=== PATIENT | female | born 1930 | race Caucasian/White ===

== ENCOUNTER 2017-12-02 11:20 | Emergency (ER) | payer OTHER ==
--- NOTE | 2017-12-02 11:41 | PDOC ---
Attending Attestation - Resident Resident Name: JoaquinTio solano - HPI HPI: 12/02/17 15:31 pt presents to the ED after falling in her appartment. Patient was alone at the time and the fall was unwitnessed. Patient reports to me that she had a mechanical trip and fall and she was able to recall the entire incident. PAtient denies syncope. - Physicial Exam PE: 12/02/17 15:33 Agree with resident exam. Patient is alert and oriented x 3. + laceration to the scalp without active bleeding. Neurologically intact. - Medical Decision Making 12/02/17 15:36 Pt presents to the ED with laceration to the scalp after apparent mechanical trip and fall. I have spoken at length to the patient and her daughter, and they are both adamant that the patient had a mechanical trip and fall, and deny syncope. Ct head is negative. Will discharge home with follow up with PMD tomorrow AM.
[2017-12-02] MEDS ORDERED: ACETAMINOPHEN 325 MG TABLET (FP) PO ONE (12:09)
--- NOTE | 2017-12-02 12:11 | PDOC ---
History of Present Illness - General Stated Complaint: FALL Time Seen by Provider: 12/02/17 11:40 History Source: Patient Exam Limitations: Clinical Condition - History of Present Illness Initial Comments: 12/02/17 12:05 Patient is an 87F with history of CAD s/p stenting, peripheral vascular disease , HLD, s/p aortic valve replacement, and anemia here today complaining of a fall. She states that she doesn't know what happened. She states that she found herself on the floor bleeding from her head. She denies chest pain, shortness of breath, dizziness. She denies headache, endorses neck "tightness". Patient is not a reliable historian, repeatedly asking the same questions. Patient has chronic wounds managed by maria luisa Rubi 2 days ago. Past History - Past Medical History Allergies/Adverse Reactions: Allergies Allergy/AdvReac Type Severity Reaction Status Date / Time clopidogrel bisulfate Allergy Verified 11/02/17 13:43 [From Plavix] Home Medications: Ambulatory Orders ASA - 81 mg PO DAILY 08/03/17 Acetaminophen 650 mg PO QID PRN 08/03/17 Atorvastatin Ca 40 mg PO DAILY 08/03/17 Biotin 1,000 mcg PO DAILY 08/03/17 Coenzyme Q-10 100 mg PO DAILY 08/03/17 Ferrous Sulfate 325 mg PO DAILY 08/03/17 Fish Oil 1,000 mg Softgel 1 cap PO DAILY 08/03/17 Vitamin D3 2,000 iu PO DAILY 08/03/17 Anemia: Yes Cardiac Disorders: Yes (AVR) Hypercholesterolemia: Yes - Surgical History Orthopedic Surgery: Yes (Left & Right THR) - Suicide/Smoking/Psychosocial Hx Smoking History: Former smoker Have you smoked in the past 12 months: No Review of Systems - Review of Systems Comments:: 12/02/17 12:11 GENERAL/CONSTITUTIONAL: No fever or chills. No weakness. HEAD, EYES, EARS, NOSE AND THROAT: No change in vision. No sore throat. CARDIOVASCULAR: No chest pain or shortness of breath RESPIRATORY: No cough, wheezing, or hemoptysis. GASTROINTESTINAL: No nausea, vomiting, diarrhea or constipation. GENITOURINARY: No dysuria, frequency, or change in urination. MUSCULOSKELETAL: Positive for neck pain and bilateral leg pain. SKIN: No rash NEUROLOGIC: No headache, vertigo, loss of consciousness, or change in strength/ sensation. ENDOCRINE: No increased thirst. No abnormal weight change HEMATOLOGIC/LYMPHATIC: No anemia, easy bleeding, or history of blood clots. ALLERGIC/IMMUNOLOGIC: No hives or skin allergy. *Physical Exam - Physical Exam Comments: 12/02/17 12:11 GENERAL: Awake, alert, and fully oriented, in no acute distress HEAD: Laceration on left aspect of head EYES: PERRLA, EOMI, sclera anicteric, conjunctiva clear ENT: Auricles normal inspection, hearing grossly normal, nares patent, oropharynx clear without exudates. Moist mucosa NECK: Normal ROM, supple, no lymphadenopathy, JVD, or masses, no midline tenderness BACK: No signs of trauma, nontender midline HIPS/PELVIS: Ranges joint, nontender, stable LEGS: Bandaged, nontender. LUNGS: No distress, speaks full sentences, clear to auscultation bilaterally HEART: Regular rate and rhythm, normal S1 and S2, no murmurs, rubs or gallops, peripheral pulses normal and equal bilaterally. ABDOMEN: Soft, nontender, normoactive bowel sounds. No guarding, no rebound. No masses EXTREMITIES: Normal inspection, Normal range of motion, no edema. No clubbing or cyanosis. NEUROLOGICAL: Cranial nerves II through XII grossly intact. Normal speech, no focal sensorimotor deficits SKIN: Warm, Dry, normal turgor, no rashes or lesions noted. Procedures - Laceration/Wound Repair Head Wound Length: 2.6 to 5.0 cm Wound Explored: clean Wound's Depth, Shape: linear Irrigated w/ Saline: Yes Anesthesia: 1% Lidocaine Amount of Anesthetic (ccs): 4 Wound Repaired With: [place] Number of Sutures: 9 ED Treatment Course - LABORATORY CBC & Chemistry Diagram: 12/02/17 12:10 12/02/17 12:10 - RADIOLOGY Radiology Studies Ordered: Category Date Time Status CERVICAL SPINE CT W/O CONTR [CT] Stat CT Scan 12/02/17 12:[address] WITHOUT CONTRAST [CT] Stat CT Scan 12/02/17 12:01 Ordered CHEST X-RAY PORTABLE* [RAD] Stat Radiology 12/02/17 12:00 Ordered Medical Decision Making - Medical Decision Making 12/02/17 12:14 Patient is 87F with history of CAD s/p stenting, aortic valve replacement, anemia, PVD here today with a fall. Cannot rule out syncope. Vital signs stable and normal. DDx includes, but is not limited to: syncope, mechanical fall, acs, arrhythmia, uti, dehydration. Cannot rule out c-spine given patient's confused state, will also ct head. 12/02/17 13:38 EKG shows normal sinus rhythm with RBBB morphology, QRS [address] elevations /depressions. T wave inversions in III. Normal MO/QRS/QTc. 12/02/17 13:41 Laboratory Tests 12/02/17 12/02/17 12/02/17 12:10 12:10 12:10 WBC 8.9 Hgb 12.1 Hct 35.7 Plt Count 279 INR 0.99 BUN 28 H Creatinine 0.9 Creat Clearance w eGFR 58.95 Troponin I < 0.02 CBC normal. CMP reassuring. Troponin undetectable. CT pending, repair pending, ua pending. 12/02/17 16:05 Laboratory Tests 12/02/17 15:03 Troponin I < 0.02 Trop undetectable x2. Patient ambulates with assistance, stands without pain. Patient and family do not want patient hospitalized. Daughter is arranging further follow up. Will discharge back to her assisted living facility. *DC/Admit/Observation/Transfer Diagnosis at time of Disposition: Laceration of head - Discharge Dispostion Disposition: HOME Condition at time of disposition: Good Admit: No - Referrals Referrals: Monse Higgins [Primary Care Provider] - - Patient Instructions Printed Discharge Instructions: DI for Laceration Repair -- Serafin, DI for Closed Head Injury Additional Instructions: Please return in 10 days to have your serafin removed. Please return if you have any new, concerning or worsening symptoms. Please follow up with your primary care physician tomorrow. You can take showers with your wound. Do not take baths or swim with your wound. - Post Discharge Activity
[2017-12-02] MEDS ORDERED: ACETAMINOPHEN 325 MG TABLET (FP) ONE (12:14)
[2017-12-02 12:28] VITALS: TEMP 97.4; BMI 57.4
[2017-12-02 12:28] LABS: MONO % 6.8 % (3.8-10.2); RBC 3.88 M/mm3 (3.60-5.2)
[2017-12-02 12:30] LABS: INR 0.99 (0.82-1.09); PROTHROMBIN TIME (PATIENT) 11.2 SEC (9.98-11.88)
[2017-12-02 12:33] LABS: BASO % 0.9 % (0-2.0); EOS % 1.3 % (0-4.5); HEMATOCRIT 35.7 % (32.4-45.2); HEMOGLOBIN 12.1 GM/dL (10.7-15.3); LYMPH % 12.3 % (8-40); MCH 31.1 pg (25.7-33.7); MCHC 33.8 g/dl (32.0-36.0); MEAN CELL VOLUME 92.1 fl (80-96); MEAN PLT VOLUME 8.1 fl (7.5-11.1); NEUT % 78.7 % (42.8-82.8); PLATELET COUNT 279 K/MM3 (134-434); WHITE BLOOD COUNT 8.9 K/mm3 (4.0-10.0)
[2017-12-02 12:48] LABS: ALBUMIN 3.6 g/dl (3.4-5.0); ANION GAP 12 (8-16); BILIRUBIN,TOTAL 0.5 mg/dL (0.2-1.0); BLOOD UREA NITROGEN 28 mg/dL (7-18); CALCIUM 9.2 mg/dL (8.5-10.1); CHLORIDE 97 mmol/L (98-107); CO2 26 mmol/L (21-32); CREATININE 0.9 mg/dL (0.55-1.02); GLUCOSE,RANDOM 121 mg/dL (74-106); MAGNESIUM 2.2 mg/dL (1.8-2.4); POTASSIUM 4.9 mmol/L (3.5-5.1); SGOT/AST 29 U/L (15-37); SGPT/ALT 33 U/L (12-78); SODIUM 135 mmol/L (136-145); TOT PROT 7.2 g/dl (6.4-8.2)
[2017-12-02 12:51] LABS: ALK PHOS 151 U/L (45-117)
[2017-12-02 15:10] VITALS: BP 108/57; PULSE 57
--- NOTE | 2017-12-02 17:31 | EKG ---
Test Reason : Blood Pressure : / mmHG Vent. Rate : 062 BPM Atrial Rate : 062 BPM P-R Int : 158 ms QRS Dur : 108 ms QT Int : 440 ms P-R-T Axes : 048 -03 020 degrees QTc Int : 446 ms NORMAL SINUS RHYTHM RIGHT BUNDLE BRANCH BLOCK ABNORMAL ECG NO PREVIOUS ECGS AVAILABLE Confirmed by BECKI KELLER, EMMY ([id number]) on 12/02/2017 5:31:37 PM Referred By: Confirmed By:EMMY CONNELL MD
== END 2017-12-02 17:06 | disposition home or self-care (01) ==
LOC: JER 11:20
DX: S01.01XA Laceration without foreign body of scalp, initial encounter (principal); W19.XXXA Unspecified fall, initial encounter; Y93.89 Activity, other specified; Y92.098 Other place in other non-institutional residence as the place of occurrence of the external cause; Y99.8 Other external cause status; I25.10 Atherosclerotic heart disease of native coronary artery without angina pectoris; I10 Essential (primary) hypertension; Z95.5 Presence of coronary angioplasty implant and graft; I73.9 Peripheral vascular disease, unspecified; E78.00 Pure hypercholesterolemia, unspecified; Z96.643 Presence of artificial hip joint, bilateral; Z95.2 Presence of prosthetic heart valve
CPT/HCPCS: 36415; 70450-TC; 71045-TC-FY; 72125-TC; 80053; 82550; 82553; 83735; 84484; 85025; 85610; 93005; 93010; 99283-25

== ENCOUNTER 2018-04-06 07:13 | Emergency (ER) | payer OTHER ==
[2018-04-06 08:01] VITALS: BMI 26.7
--- NOTE | 2018-04-06 08:28 | PDOC ---
History of Present Illness - General Chief Complaint: Injury Stated Complaint: WOUND LEFT LEG Time Seen by Provider: 04/06/18 07:25 - History of Present Illness Initial Comments: 04/06/18 08:27 87 yo M with h/o anemia, CAD s/p stenting, PVD, HLD, Ao valve replacement who p /w with L leg trauma s/p mechanical fall. Patient reports rolling out of bed this AM with blunt injury to L tib/fib. Does not recall head trauma. Denies LOC , NARANJO, neck injury. Was able to ambulate following injury. Patient irrigated R ant leg wound with water. Reports minimal blood loss. Does not recall last tetanus. Chronic wounds managed by Addy Fuentes. Patient denies N/V, F/C, CP, SOB, urinary complaints, abdominal pain, diarrhea, constipation, lightheadedness, weakness, sensory changes. PMHx: as noted above ROS: as noted SHx: Denies Etoh, IVDA, tobacco. Allergies: Plavix Meds: ASA Past History - Past Medical History Allergies/Adverse Reactions: Allergies Allergy/AdvReac Type Severity Reaction Status Date / Time clopidogrel bisulfate Allergy Verified 04/06/18 10:03 [From Plavix] Home Medications: Ambulatory Orders Acetaminophen 325 mg PO DAILY 04/06/18 B-Complex with Vitamin C [Rakel-Bee with C] 1 each PO DAILY 04/06/18 Biotin 1 mg PO DAILY 04/06/18 Calcium Phosphate Trib/Vit D3 [Citracal + D3 Gummies] 250 tablet PO DAILY Cholecalciferol (Vitamin D3) [Vitamin D3] 2,000 unit PO DAILY 04/06/18 Dextromethorphan Polistirex [Delsym] 30 mg PO Q12H 04/06/18 Escitalopram Oxalate [Lexapro -] 5 mg PO DAILY 04/06/18 Multivitamin/Iron/Folic Acid [Centrum Women Tablet] 1 tab PO DAILY 04/06/18 Gilchrist-3/Dha/Epa/Fish Oil [Fish Oil 500 mg Softgel] 100 mg PO DAILY 04/06/18 Ubidecarenone [Coenzyme Q10] 100 mg PO DAILY 04/06/18 Wheat Dextrin [Benefiber] 3 gm PO PRN 04/06/18 Anemia: Yes Cardiac Disorders: Yes (AVR) COPD: No Hypercholesterolemia: Yes - Surgical History Orthopedic Surgery: Yes (Left & Right THR) - Immunization History Immunization Up to Date: Yes - Suicide/Smoking/Psychosocial Hx Smoking History: Never smoked Have you smoked in the past 12 months: No If you are a former smoker, when did you quit?: 50 years ago Information on smoking cessation initiated: No Hx Alcohol Use: No Drug/Substance Use Hx: No Substance Use Type: None Review of Systems - Review of Systems Comments:: 04/06/18 08:32 GENERAL/CONSTITUTIONAL: No fever or chills. No weakness. HEAD, EYES, EARS, NOSE AND THROAT: No change in vision. No ear pain or discharge. No sore throat. CARDIOVASCULAR: No chest pain or shortness of breath RESPIRATORY: No cough, wheezing, or hemoptysis. GASTROINTESTINAL: No nausea, vomiting, diarrhea or constipation. GENITOURINARY: No dysuria, frequency, or change in urination. MUSCULOSKELETAL: + L ant leg wound. No joint or muscle swelling or pain. No neck or back pain. SKIN: No rash NEUROLOGIC: No headache, vertigo, loss of consciousness, or change in strength/ sensation. ENDOCRINE: No increased thirst. No abnormal weight change HEMATOLOGIC/LYMPHATIC: No anemia, easy bleeding, or history of blood clots. ALLERGIC/IMMUNOLOGIC: No hives or skin allergy. *Physical Exam - Vital Signs Last Vital Signs Temp Pulse Resp BP Pulse Ox 97.7 F 57 L 17 124/66 97 04/06/18 07:32 04/06/18 07:32 04/06/18 07:32 04/06/18 07:32 04/06/18 07:32 - Physical Exam Comments: 04/06/18 08:32 GENERAL: Awake, alert, and fully oriented, in no acute distress HEAD: No signs of trauma, normocephalic, atraumatic EYES: PERRLA, EOMI, sclera anicteric, conjunctiva clear ENT: Auricles normal inspection, hearing grossly normal, nares patent, oropharynx clear without exudates. Moist mucosa NECK: Normal ROM, supple, no lymphadenopathy, JVD, or masses LUNGS: No distress, speaks full sentences, clear to auscultation bilaterally HEART: Regular rate and rhythm, normal S1 and S2, no murmurs, rubs or gallops, peripheral pulses normal and equal bilaterally. ABDOMEN: Soft, nontender, normoactive bowel sounds. No guarding, no rebound. No masses EXTREMITIES : Normal range of motion, no edema. No clubbing or cyanosis. R ANT LEG: + Friable, L ant tib. superficial wound, 2 x 2 cm. No subcutaneous or bony visualization. NEUROLOGICAL: Cranial nerves II through XII grossly intact. Normal speech, normal gait, no focal sensorimotor deficits SKIN: Warm, Dry, normal turgor, no rashes or lesions noted ED Treatment Course - RADIOLOGY Radiology Studies Ordered: Category Date Time Status HEAD CT WITHOUT CONTRAST [CT] Stat CT Scan 04/06/18 08:26 Ordered LEG TIB/FIB-RIGHT [RAD] Stat Radiology 04/06/18 08:26 Ordered Medical Decision Making - Medical Decision Making 04/06/18 08:36 87 yo M with h/o anemia, CAD s/p stenting, PVD, HLD, Ao valve replacement BIBA from [facility] ( [facility]) with L leg trauma s/p mechanical fall. VSS, AF. GCS 15. CTH r/o fracture, hematoma, hemorrhage. Nexus Neg C-SPINE, L LEG RAD r/ o fracture. ED Course: CTH, LEFT TIB/FIB RAD BOOSTRIX 04/06/18 09:12 L leg irrigated, and topical Bacitracin applied. Dressed with non stick dressing and charu. 04/06/18 11:10 CTH: Unremarkable 04/06/18 13:15 CXR, and L TIB/FIB RAD unremarkable Patient stable for d/c with return precautions. *DC/Admit/Observation/Transfer Diagnosis at time of Disposition: Leg wound, left Qualifiers: Encounter type: initial encounter Qualified Code(s): S81.802A - Unspecified open wound, left lower leg, initial encounter - Discharge Dispostion Condition at time of disposition: Stable Decision to Admit order: No - Referrals Referrals: Chucky Coe [Primary Care Provider] - - Patient Instructions Printed Discharge Instructions: Closed Head Injury, DI for Avulsion Laceration (Not Requiring Sutures) Additional Instructions: Please return to the emergency department with any new or worsening symptoms or concerns. Please follow up with your primary care physician within 72 hours. you were given a tetanus shot today. your xray of your chest and leg are negative for any traumatic injuries. for your wound, you can apply non stick yung dressing daily and bacitracin ointment. return for redness. swelling or any signs of infection. your ct of your head today was unremarkable for any acute injuries. follow up with your primary doctor, call to schedule. - Post Discharge Activity
[2018-04-06] MEDS ORDERED: DIPHTH,PERTUSS(ACELL),TET 0.5 ML DISP.SYRIN IM ONE (08:30)
--- NOTE | 2018-04-06 09:23 | PDOC ---
Attending Attestation - Resident Resident Name: Marvel Hope - ED Attending Attestation I have performed the following: I have examined & evaluated the patient, The case was reviewed & discussed with the resident, I agree w/resident's findings & plan, Exceptions are as noted - HPI HPI: 04/06/18 09:20 87 yo F take baby asa daily here s/p rolling out of bed in sleep. lives in [facility]. sustained skin tear to right reid. no n/v no headache. no neck or back pain since. no change to ms. last tetanus unknown. ambulating since fall. - Physicial Exam PE: 04/06/18 09:21 awake alert head atraumatic. neck no cervical spine tenderness. lungs clear bilaterally. heart rr no mrg. abd soft nt nd. ext wwp right lower ext anterior reid skin avulsion. no active bleeding. ext wwp from and hip , knee and ankle bilaterally. 2 + dp/ pt. no mildline spinal tenderess. skin : skin tear anterior reid. thin flap. nuero gcs 15. alert oriented x 3. - Medical Decision Making 04/06/18 09:22 plan skin tear. wound management with debridement, bactracin and nonstick dressing. xray r/o underlying bony fracture. ct head due to fact pt on baby aspirin and age. tylenol as needed for pain control [facility].
[2018-04-06 12:14] VITALS: BP 141/52; PULSE 55; TEMP 97.5
== END 2018-04-06 13:51 ==
LOC: JER 07:13
PROC: 3E0234Z Introduction of Serum, Toxoid and Vaccine into Muscle, Percutaneous Approach (ICD-10-PCS; principal; 2018-04-06)
DX: S81.812A Laceration without foreign body, left lower leg, initial encounter (principal); W06.XXXA Fall from bed, initial encounter; Y93.89 Activity, other specified; Y92.122 Bedroom in nursing home as the place of occurrence of the external cause; Y99.8 Other external cause status; I25.10 Atherosclerotic heart disease of native coronary artery without angina pectoris; Z95.5 Presence of coronary angioplasty implant and graft; I73.9 Peripheral vascular disease, unspecified; E78.00 Pure hypercholesterolemia, unspecified; Z87.11 Personal history of peptic ulcer disease; Z96.643 Presence of artificial hip joint, bilateral; Z88.8 Allergy status to other drugs, medicaments and biological substances
CPT/HCPCS: 70450-TC; 71045-TC-FY; 73590-TC-LT-FY; 90471; 90715; 99282-25